=== PATIENT | male | born 1990 | race Caucasian/White ===

== ENCOUNTER 2017-11-24 12:44 | Emergency (ER) | payer MEDICAID, OTHER ==
[2017-11-24 14:34] VITALS: BP 102/69
--- NOTE | 2017-11-24 14:55 | ED ---
Influenza-Like Illness - History of Current Complaint Chief Complaint: UCGeneralIllness Time Seen by Provider: 11/24/17 14:40 - Allergy/Home Medications Allergies/Adverse Reactions: Allergies Allergy/AdvReac Type Severity Reaction Status Date / Time No Known Allergies Allergy Verified 11/24/17 14:31 PMH/Surg Hx/FS Hx/Imm Hx - Surgical History Surgery Procedure, Year, and Place: Tonsillectomy Infectious Disease History: No Infectious Disease History: Denies: Traveled Outside the [place] in Last 30 Days - Social History Alcohol Use: Rare Substance Use Type: Reports: None Smoking Status (MU): Light Every Day Tobacco Smoker Type: Cigarettes Amount Used/How Often: 6-7 per day Physical Exam Vital Signs On Initial Exam: Initial Vitals Temp Pulse Resp BP Pulse Ox 99 F 82 18 102/69 100 11/24/17 14:26 11/24/17 14:26 11/24/17 14:26 11/24/17 14:26 11/24/17 14:26 Diagnostics - Vital Signs Vital Signs Temp Pulse Resp BP Pulse Ox 11/24/17 14:26 99 F 82 18 102/69 100 - Laboratory Lab Results: Lab Results 11/24/17 Range/Units 14:39 Influenza A (Rapid) Positive A (Negative) Influenza B (Rapid) Negative (Negative) Lab Statement: Any lab studies that have been ordered have been reviewed, and results considered in the medical decision making process. Discharge - Discharge Plan Condition: Stable Disposition: HOME Prescriptions: Ondansetron TAB* [Zofran 4 MG Tab*] 4 mg PO Q8H PRN #15 tab PRN Reason: Nausea Patient Education Materials: Influenza (ED) Forms: *Work Release Referrals: [facility] [Outside] No Primary Care Phys,NOPCP [Primary Care Provider] - - Billing Disposition and Condition Condition: STABLE Disposition: HOME
--- NOTE | 2017-11-24 15:02 | UC ---
FLU HPI - HPI Summary HPI Summary: Pt presents with c/o sudden onset fever chills, body aches, cough, chest congestion X 3 days. Pt works as a cook at local restaurant. - History of Current Complaint Hx Obtained From: Patient Onset/Duration: Sudden Onset, Lasting Days - 3, Still Present Severity Currently: Moderate Severity Initially: Moderate Pain Intensity: 6 Associated Signs & Symptoms: Positive: Fever, Myalgia, Cough, Nasal Congestion Related Hx: Possible Flu/Infectious Exposure - Risk Factors Influenza Risk Factors: Negative <Krista Cortes NP - Last Filed: 11/24/17 15:00> <Yolanda Lee - Last Filed: 11/24/17 15:49> - History of Current Complaint Chief Complaint: UCGeneralIllness Stated Complaint: FLU SYMPTOMS Time Seen by Provider: 11/24/17 14:40 - Allergy/Home Medications Allergies/Adverse Reactions: Allergies Allergy/AdvReac Type Severity Reaction Status Date / Time No Known Allergies Allergy Verified 11/24/17 14:31 PMH/Surg Hx/FS Hx/Imm Hx Previously Healthy: Yes - Surgical History Surgical History: Yes Surgery Procedure, Year, and Place: Tonsillectomy - Family History Known Family History: Positive: Cardiac Disease - Social History Occupation: Employed Full-time Lives: With Family Alcohol Use: Rare Substance Use Type: None Smoking Status (MU): Light Every Day Tobacco Smoker Type: Cigarettes Amount Used/How Often: 6-7 per day Have You Smoked in the Last Year: Yes <Krista Cortes NP - Last Filed: 11/24/17 15:00> Review of Systems Constitutional: Fever, Chills, Fatigue Skin: Negative Eyes: Negative ENT: Sinus Congestion Respiratory: Cough Cardiovascular: Negative Gastrointestinal: Negative Genitourinary: Negative Motor: Negative Neurovascular: Negative Musculoskeletal: Myalgia Neurological: Negative Psychological: Negative Is Patient Immunocompromised?: No All Other Systems Reviewed And Are Negative: Yes <Krista Cortes NP - Last Filed: 11/24/17 15:00> Physical Exam Triage Information Reviewed: Yes Appearance: Ill-Appearing Vital Signs: Initial Vital Signs Temp 99 F 11/24/17 14:26 Pulse 82 11/24/17 14:26 Resp 18 11/24/17 14:26 BP 102/69 11/24/17 14:26 Pulse Ox 100 11/24/17 14:26 Vital Signs Reviewed: Yes Eye Exam: Normal ENT Exam: Other ENT: Positive: Nasal congestion Neck exam: Normal Respiratory Exam: Normal Cardiovascular Exam: Normal Musculoskeletal Exam: Normal Neurological Exam: Normal Psychological Exam: Normal Skin Exam: Normal <Krista Cortes NP Last Filed: 11/24/17 15:00> Vital Signs: Initial Vital Signs Temp 99 F 11/24/17 14:26 Pulse 82 11/24/17 14:26 Resp 18 11/24/17 14:26 BP 102/69 11/24/17 14:26 Pulse Ox 100 11/24/17 14:26 <Yolanda Lee - Last Filed: 11/24/17 15:49> Diagnostics - Laboratory Diagnostic Studies Completed/Ordered: Rapid FLu: positive A <Krista Cortes NP - Last Filed: 11/24/17 15:00> Flu Course/Dx - Differential Dx/Diagnosis Differential Diagnosis/HQI/PQRI: Influenza, Upper Respiratory Infection Provider Diagnoses: Influenza A <Krista Cortes NP - Last Filed: 11/24/17 15:00> Discharge - Sign-Out/Discharge Documenting (check all that apply): Discharge - Billing Disposition and Condition Condition: STABLE Disposition: HOME <Krista Cortes NP - Last Filed: 11/24/17 15:00> - Billing Disposition and Condition Condition: STABLE Disposition: HOME <Yolanda Lee - Last Filed: 11/24/17 15:49> - Discharge Plan Condition: Stable Disposition: HOME Prescriptions: Ondansetron TAB* [Zofran 4 MG Tab*] 4 mg PO Q8H PRN #15 tab PRN Reason: Nausea Patient Education Materials: Influenza (ED) Forms: *Work Release Referrals: [facility] [Outside] No Primary Care Phys,NOPCP [Primary Care Provider] - Attestation Statement User Type: Provider - I was available for consult. This patient was seen by the HUSSAIN. The patient was not presented to, seen by, or examined by me. -Eleazarj <Yolanda Lee - Last Filed: 11/24/17 15:49>
== END 2017-11-24 15:03 | disposition home or self-care (01) ==
LOC: UCCORT 12:44
DX: J10.1 Influenza due to other identified influenza virus with other respiratory manifestations (principal); F17.210 Nicotine dependence, cigarettes, uncomplicated
CPT/HCPCS: 87502; 99212; G0463